=== PATIENT | female | born 1980 | race Caucasian/White ===

== ENCOUNTER 2021-10-09 20:03 | Inpatient (IN) | payer SELFPAY ==
--- NOTE | 2021-10-09 03:22 | XRR_ITS ---
PROCEDURE INFORMATION: Exam: XR Chest Exam date and time: 10/09/2021 3:22 AM Age: 40 years old Clinical indication: Other: AMS TECHNIQUE: Imaging protocol: XR of the chest. Views: 1 view. COMPARISON: No relevant prior studies available. FINDINGS: Lungs: No consolidation. Pleural spaces: No pleural effusion. No pneumothorax. Heart/Mediastinum: No cardiomegaly. Bones/joints: Unremarkable. XR/XR chest 1V portable [id number] IMPRESSION: No acute abnormality demonstrated. Radiation Dose CTDIVOL = (mGy): DLP = (mGy-cm)
[2021-10-09 20:05] VITALS: BP 177/111; PULSE 81; RESP 18; TEMP 36.7; O2SAT 100; BMI 27.3
--- NOTE | 2021-10-09 20:08 | CTR_ITS ---
PROCEDURE INFORMATION: Exam: CT Head Without Contrast Exam date and time: 10/09/2021 8:08 PM Age: 40 years old Clinical indication: Alteration of consciousness; Stupor; Patient HX: Ams/od TECHNIQUE: Imaging protocol: Computed tomography of the head without contrast. Radiation optimization: All CT scans at this facility use at least one of these dose optimization techniques: automated exposure control; mA and/or kV adjustment per patient size (includes targeted exams where dose is matched to clinical indication); or iterative reconstruction. COMPARISON: CT head wo con* [id number] 01/12/2018 10:15 AM RADIATION DOSE METRICS: Total DLP (mGy-cm): 719.67 FINDINGS: Brain: Unremarkable. No hemorrhage. No significant white matter disease. No edema. Cerebral ventricles: No ventriculomegaly. Paranasal sinuses: Visualized sinuses are unremarkable. No fluid levels. Mastoid air cells: Unremarkable as visualized. No mastoid effusion. Bones/joints: Unremarkable. No acute fracture. Soft tissues: Unremarkable. CT/CT head wo con* [id number] IMPRESSION: 1. No acute intracranial abnormality demonstrated. 2. There is no interval change from the prior examination. Radiation Dose CTDIVOL = (mGy): DLP = 719.67 (mGy-cm)
--- NOTE | 2021-10-09 20:08 | ECG_ITS ---
[facility] Test Date: 2021-10-09 Pat Name: Asad Olmstead Department: Room: Gender: Female [facility] Nurse: : 1980 Requested By: Jean Cuenca Order Number: [id number] Hannah MD: Valente Rincon M.D. Measurements Intervals [place] Rate: 79 P: -7 [place]: 151 QRS: 62 QRSD: 78 T: 35 QT: 345 QTc: 397 Interpretive Statements SINUS RHYTHM WITH SINUS ARRHYTHMIA POSSIBLE RIGHT VENTRICULAR CONDUCTION DELAY [RSR (QR) IN V1/V2] No previous ECG available for comparison Electronically Signed On 10-10-2021 16:59:12 HOSPICE ENTRANCE ATTENDANT by Valente Rincon M.D. [email or web address]
[2021-10-09 20:19] LABS: Glucose Point of Care 76 mg/dL (70-110)
[2021-10-09 20:21] VITALS: BP 160/92; PULSE 98; RESP 18; TEMP 36.7; O2SAT 100
[2021-10-09] MEDS: sodium chloride 0.9% 1,000 ML 999 ML IV ×2 (20:22→23:47)
--- NOTE | 2021-10-09 20:22 | PC.NURSE ---
spoke w. a pharmacist from poison control. they stated pt at risk for seizures, prolonged Q-T intervals, stated peak action of the med is 2-5 hrs.
[2021-10-09 20:25] LABS: Basophils # 0.1 10^3/uL (0.0-0.1); Basophils % 0.9 %; Eosinophils # 0.1 10^3/uL (0.0-0.8); Eosinophils % 1.3 %; Hematocrit 39.2 % (37.0-47.0); Hemoglobin 12.1 g/dL (11.5-15.3); Lymphocytes # 2.4 10^3/uL (0.8-4.8); Lymphocytes % 30.7 %; Mean Corpuscular HGB Conc 30.9 g/dL (30.0-36.0); Mean Corpuscular Hemoglobin 24.1 pg (28.0-34.0); Mean Corpuscular Volume 78.1 fl (81-99); Mean Platelet Volume 10.8 fL (7.4-10.4); Monocytes # 0.7 10^3/uL (0.2-0.9); Monocytes % 9.3 %; Neutrophils # 4.44 10^3/uL (1.8-7.7); Neutrophils % 57.4 %; Nucleated Red Blood Cells % 0 %; Platelet Count 313 10^3/cmm (130-400); Red Blood Count 5.02 10^6/uL (4.1-5.3); Red Cell Distribution Width 13.9 % (12.1-15.1); White Blood Count 7.7 10^3/uL (4.0-10.0)
[2021-10-09 20:35] LABS: ABG PCO2 34.7 mmHg (35-45); ABG PH Result 7.42 (7.35-7.45); Arterial Blood Gas Hematocrit 37.1 % (37-47); Base Excess ABG -1.4 mmol/L (-2.0-2.0); Blood Gas Sample Site Brachial, right; Blood Gas Sample Type Arterial; HCO3 ABG 22.6 mmol/L (22-26); Oxygen Device ROOM AIR
[2021-10-09 20:36] LABS: HCG, Serum Qual Negative (Negative)
[2021-10-09 21:04] LABS: Alanine Aminotransferase 12 U/L (0-33); Albumin Level 4.2 g/dL (3.5-5.2); Alkaline Phosphatase 45 IU/L (35-105); Anion Gap 20.7 (5-19); Aspartate Amino Transferase 12 U/L (0-32); Blood Urea Nitrogen 9 mg/dL (6-20); Calcium 8.5 mg/dL (8.5-10.5); Carbon Dioxide 18 mmol/L (22-29); Chloride 101 mmol/L (98-107); Globulin 1.9 g/dL (1.3-4.6); Glomerular Filtration Rate 79.4 mL/min (90-130); Glucose 81 mg/dL (65-115); Osmolality Calculated 280 mOsm/kg (285-295); Potassium 3.7 mmol/L (3.5-5.1); Sodium 136 mmol/L (136-145); Thyroid Stimulating Hormone 1.39 uIU/mL (0.27-4.20); Total Bilirubin 0.3 mg/dL (0.15-1.2); Total Protein 6.1 g/dL (6.6-8.7)
[2021-10-09 21:14] LABS: Acetaminophen < 5.0 ug/mL (10-30); Alcohol Level < 10 mg/dL (0-10); Salicylate < 0.3 mg/dL (3-10)
--- NOTE | 2021-10-09 21:36 | ED_ITS ---
HPI - Overdose General: Chief Complaint: Overdose Stated Complaint: overdose Time Seen by Provider: 10/09/21 20:08 History of Present Illness: HPI Narrative: 40-year-old female presents to emergency department via vehicle. carries her in. She is not r esponding. He reports that possibly sometime around 7 PM, she took half a bottle or so of her sleeping pills . This is amitriptyline. He notes that they had been arguing, and says I am the cause of this . She is nonverbal, breathing, has a pulse, and response to noxious stimuli complaint: intentional overdose Onset (ago): hour(s) Time: 19:00 Timing confirmed by: spouse Review of Systems General: Reports: ROS unobtainable due to medical condition PFS ED PFSH: Medical History (Updated 10/09/21 @ 21:37 by Jean Staton DO) Anxiety and depression Insomnia disorder Sciatica of right side Weight loss of more than 10% body weight Surgical History History of gastric stapling Hx of section Hx of cholecystectomy Social History Alcohol intake: never Marital status: Number of children: 2 Current occupational status: employed 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 Exam Const: COMMON NORMALS: well nourished EXAM LIMITATIONS: altered mental status and behavioral limitations GENERAL APPEARANCE: well kempt and ill appearing ORIENTATION/CONSCIOUSNESS: Yes Other orientation findings ( unr esponsive but actually responds when provoked.) HENMT: COMMON NORMALS: normocephalic, atraumatic, external ears normal and Normal external nose present HEAD & SCALP: normocephalic and atraumatic FACE & SINUS: normal facial exam and face symmetric NOSE: Normal external nose present and Normal nares present EXTERNAL EAR: Yes external ears normal Eye: COMMON NORMALS: Equal, round and reactive pupils present and EOMs intact bilaterally PUPIL: Yes Equal, round and reactive pupils present Chest: COMMONS NORMALS: normal inspection of the chest Resp: COMMON NORMALS: normal respiratory effort, No use of accessory muscles and clear to auscultation bilaterally AUSCULTATION: clear to auscultation bilaterally Cardio: COMMON NORMALS: regular rhythm and Peripheral pulses 2+ throughout RATE: tachycardic RHYTHM: regular rhythm PERIPHERAL PULSES: Peripheral pulses 2+ throughout GI: COMMON NORMALS: Soft to palpation INSPECTION: Yes normal to inspection PALPATION: Yes Soft to palpation and No Tenderness to palpation present (GI) Neuro: SENSORIUM/ORIENTATION: Yes somnolent (voluntarily) Psych: APPEARANCE: Yes well kempt Course Consultations: Consultation #1: subha Time: 21:36 Vital Signs: Vital signs: Vital Signs Temperature 98.1 F 10/09/21 20:05 Pulse Rate 81 10/09/21 20:05 Respiratory Rate 18 10/09/21 20:05 Blood Pressure 177/111 10/09/21 20:05 Pulse Oximetry 100 10/09/21 20:05 MDM - Overdose 2 MDM Narrative: Medical decision making narrative: Healthy 40-year-old female who intentionally overdosed on amitriptyline. Poison control was called. Obviously risks/concerns would be QTC prolongation which she does not have an EKG at least not yet, risk for seizure, arrhythmia, tachycardia and hypertension. Currently heart rate 90, blood pressure 142/95, saturations 99% on room air. She is maintaining her airway just fine. Believes she is playing possum a little bit as her is in the room. She will have to go to the ICU due to seizure risk, arrhythmia risk, etc. for the next several hours. Psychiatry consult once stable. 96-hour paperwork is in the chart, in case she tries to leave. Lab Data: Labs: Lab Results 10/09/21 10/09/21 10/09/21 20:09 20:12 20:12 WBC 7.7 10^3/uL 10^3/ uL (4.0-10.0) RBC 5.02 10^6/uL 10^6 /uL (4.1-5.3) Hgb 12.1 g/dL g/dL (11.5-15.3) Hct 39.2 % % (37.0-47.0) MCV 78.1 fl L fl (81-99) MCH 24.1 pg L pg (28.0-34.0) MCHC 30.9 g/dL g/dL (30.0-36.0) RDW 13.9 % % (12.1-15.1) Plt Count 313 10^3/cmm 10^3 /cmm (130-400) MPV 10.8 fL H fL (7.4-10.4) Neut % (Auto) 57.4 % % Lymph % (Auto) 30.7 % % [place] % (Auto) 9.3 % % Eos % (Auto) 1.3 % % Baso % (Auto) 0.9 % % Neut # (Auto) 4.44 10^3/uL 10^3 /uL (1.8-7.7) Lymph # (Auto) 2.4 10^3/uL 10^3/ uL (0.8-4.8) [place] # (Auto) 0.7 10^3/uL 10^3/ uL (0.2-0.9) Eos # (Auto) 0.1 10^3/uL 10^3/ uL (0.0-0.8) Baso # (Auto) 0.1 10^3/uL 10^3/ uL (0.0-0.1) Nucleated RBC % (a uto) 0 % % Nucleated RBCs # 0.0 /100WBC /100W BC Specimen Type Arterial Sample Site Brachial, right ABG pH 7.42 (7.35-7.45) ABG pCO2 34.7 mmHg L mmHg (35-45) ABG pO2 93.0 mmHg mmHg (80.0-100.0) ABG HCO3 22.6 mmol/L mmol/ L (22-26) ABG Base Excess -1.4 mmol/L mmol/ L (-2.0-2.0) Livan Test N/a Hematocrit 37.1 % % (37-47) O2 Delivery Device Room air Banking And Finance Instructor ID [email or web address] Sodium 136 mmol/L mmol/L (136-145) Potassium 3.7 mmol/L mmol/L (3.5-5.1) Chloride 101 mmol/L mmol/L (98-107) Carbon Dioxide 18 mmol/L L mmol/ L (22-29) Anion Gap 20.7 H (5-19) BUN 9 mg/dL mg/dL (6-20) Creatinine 0.8 mg/dL mg/dL (0.5-0.9) GFR Calculation 79.4 mL/min L mL/ min (90-130) Glucose 81 mg/dL mg/dL (65-115) POC Glucose Calculated Osmolal ity 280 mOsm/kg L mOs m/kg (285-295) Calcium 8.5 mg/dL mg/dL (8.5-10.5) Total Bilirubin 0.3 mg/dL mg/dL (0.15-1.2) AST 12 U/L U/L (0-32) ALT 12 U/L U/L (0-33) Alkaline Phosphata se 45 IU/L IU/L (35-105) Total Protein 6.1 g/dL L g/dL (6.6-8.7) Albumin 4.2 g/dL g/dL (3.5-5.2) Globulin 1.9 g/dL g/dL (1.3-4.6) TSH 1.39 uIU/mL uIU/m L (0.27-4.20) HCG, Qual Salicylates < 0.3 mg/dL L mg/ dL (3-10) Acetaminophen < 5.0 ug/mL L ug/ mL (10-30) Ethyl Alcohol < 10 mg/dL mg/dL (0-10) 10/09/21 10/09/21 20:12 20:17 WBC RBC Hgb Hct MCV MCH MCHC RDW Plt Count MPV Neut % (Auto) Lymph % (Auto) [place] % (Auto) Eos % (Auto) Baso % (Auto) Neut # (Auto) Lymph # (Auto) [place] # (Auto) Eos # (Auto) Baso # (Auto) Nucleated RBC % (a uto) Nucleated RBCs # Specimen Type Sample Site ABG pH ABG pCO2 ABG pO2 ABG HCO3 ABG Base Excess Livan Test Hematocrit O2 Delivery Device Banking And Finance Instructor ID Sodium Potassium Chloride Carbon Dioxide Anion Gap BUN Creatinine GFR Calculation Glucose POC Glucose 76 mg/dL mg/dL (70-110) Calculated Osmolal ity Calcium Total Bilirubin AST ALT Alkaline Phosphata se Total Protein Albumin Globulin TSH HCG, Qual Negative (Negative) Salicylates Acetaminophen Ethyl Alcohol Discharge Plan Discharge Patient Disposition: Admitted As Inpatient Clinical Impression: Drug overdose Qualifiers: Encounter type: initial encounter Injury intent: intentional self-harm Qualified Code(s): T50.902A - Poisoning by unspecified drugs, medicaments and biological substances, intentional self-harm, initial encounter Condition: Serious Coding Level of Care Code ED Bi Consultant for Krishna Garcia
[2021-10-09 23:45] VITALS: BP 144/102
[2021-10-09 23:50] VITALS: BP 136/78; BP 144/102; PULSE 82; PULSE 97; RESP 15; RESP 16; O2SAT 97; O2SAT 98
[2021-10-09 23:51] VITALS: BP 136/78; PULSE 97; RESP 16; O2SAT 97
[2021-10-09 23:55] VITALS: BP 144/102; PULSE 91; RESP 34; TEMP 36.4; O2SAT 97
[2021-10-10] VITALS (79 sets, daily range): BP systolic 125–144; BP diastolic 78–102; PULSE 69–99; RESP 0–28; TEMP 36.4–36.7; O2SAT 95–100
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
[2021-10-10] MEDS: sodium chloride 0.9% 1,000 ML 75 ML IV (04:12)
--- NOTE | 2021-10-10 04:54 | PC.NURSE ---
Patient resting in bed with eyes closed. Patient is alert and orientated. Patient is tearful at times, talking about leaving her for best friend. V/S wnl.
--- NOTE | 2021-10-10 05:13 | PC.NURSE ---
Patient is 96 hour hold.
[2021-10-10 09:45] LABS: Blood Urea Nitrogen 7 mg/dL (6-20); Carbon Dioxide 19 mmol/L (22-29); Chloride 108 mmol/L (98-107); Glomerular Filtration Rate 92.7 mL/min (90-130); Glucose 85 mg/dL (65-115); Magnesium 1.8 mg/dL (1.7-2.3); Osmolality Calculated 287 mOsm/kg (285-295); Sodium 140 mmol/L (136-145)
[2021-10-10 09:53] LABS: Basophils # 0.1 10^3/uL (0.0-0.1); Basophils % 0.9 %; Eosinophils # 0.1 10^3/uL (0.0-0.8); Eosinophils % 1.9 %; Hematocrit 38.2 % (37.0-47.0); Hemoglobin 11.8 g/dL (11.5-15.3); Lymphocytes # 1.7 10^3/uL (0.8-4.8); Lymphocytes % 28.8 %; Mean Corpuscular HGB Conc 30.9 g/dL (30.0-36.0); Mean Corpuscular Hemoglobin 24.3 pg (28.0-34.0); Mean Corpuscular Volume 78.8 fl (81-99); Mean Platelet Volume 11.1 fL (7.4-10.4); Monocytes # 0.5 10^3/uL (0.2-0.9); Monocytes % 8.1 %; Neutrophils # 3.51 10^3/uL (1.8-7.7); Neutrophils % 60.1 %; Nucleated Red Blood Cells % 0 %; Platelet Count 261 10^3/cmm (130-400); Red Blood Count 4.85 10^6/uL (4.1-5.3); White Blood Count 5.8 10^3/uL (4.0-10.0)
--- NOTE | 2021-10-10 10:32 | PC.CHAP ---
Pastoral Care Encounter/Spiritual Assessment Type of Contact [] Declined timber inspector visit [] Patient/Family/Request visit [] Outpatient visit [] Follow-up visit [] Physician referral [] Code/Alert [x] Routine visit [] Staff referral [] Actively dying [x] Patient sleeping [] Family support [] [] Out of room [] Palliative care [] [] Receiving care in room [] Pre-surgical visit [] Trauma [] Long length of stay [x] ICU visit [] Other: Relational/Emotional Strength [] Patient feels connected with others/family/visitors/staff [] Distress [] Loneliness/isolation [] Abandonment Spirituality of Patient [] Person of [place] [] Attends Holiness of their [place] [] Believes in Prayer [] Reads Bible or Rastafarian materials [] There are Spiritual issues to be addressed Deputy Director Interventions [x] Prayer [] Active listening [] Non-anxious presence [] Spiritual/emotional support [] Crisis/trauma care [] Spiritual counseling [] Bereavement support [] Provided bereavement packet [] Provided Bible/devotional materials [] Provided toy/stuffed animal, coloring book to patient or family member [] Provided Communion [] Anointing/[place] [] Salvation [x] Completed spiritual assessment [] Other: Impact on Illness or Injury [] Angry [] Fearful [] Anxious [] Often cries [] Exhaustion [] Unable to work [] Unable to attend evangelical [] Unable to walk/stand [] Unable to read [] Unable to drive [] Unable to eat/drink [] Unable to sleep [] Unable to be with family [] Patient intubated [] Other: Summary Time spent with patient
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
--- NOTE | 2021-10-10 12:45 | P.MISC_ITS ---
Miscellaneous Note Purpose of Documentation: Patient was seen this morning. She has been asymptomatic overnight. She states she has no other medical problems and would like to go home today. She states she only took 5 tablets of the nortriptyline. She says it was half a bottle because they were total 10 in the bottle when asked to read a later time she said she counted the pills in her hand and they were only 5. She says she goes to school and has class tomorrow and would like to get discharged today. No acute events reported by nursing staff. No events on telemetry either. She denies chest pain, shortness of breath, palpitations, feeling hot, diarrhea, constipation. Denies lightheadedness. Patient was admitted overnight. She is awaiting to see Dr. Martinez today from Neuropsych Unit for evaluation. Physical exam unremarkable After discussion with Dr. Martinez it was decided the patient will be t ransferred to Neuropsych Unit for 96-hour hold. Medicine will sign off at this point. Transfer patient to neuro psych unit under Dr. Martinez care.
--- NOTE | 2021-10-10 13:10 | PC.NURSE ---
Report Report faxed and called to NPU. IV from left AC removed. Will transport with the help of security.
--- NOTE | 2021-10-10 14:02 | PC.NURSE ---
Admission- 40-year-old female presents to emergency department via vehicle. carries her in. She is not responding. He reports that possibly sometime around 7 PM, she took half a bottle or so of her sleeping pills . This is amitriptyline. He notes that they had been arguing, and says I am the cause of this . She is nonverbal, breathing, has a pulse, and response to noxious stimuli. Upon arrival to unit- Patient is tearful and anxious. States she just wants to leave. Agitated during skin check but did calm. Reports this was a SA by OD. 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 Denies prior of current SI. Denies having a diagnosis but is currently on Wellbutrin and Amitriptyline. A&OX4.
[2021-10-10] MEDS: nicotine 2 mg Gum BUCCAL ×2 (14:15→17:35)
[2021-10-11] MEDS: buPROPion SR (12 HR) 150 mg Tablet PO (05:30)
[2021-10-11 06:00] VITALS: RESP 14
[2021-10-11 07:15] LABS: Alanine Aminotransferase 7 U/L (0-33); Albumin Level 3.5 g/dL (3.5-5.2); Alkaline Phosphatase 35 IU/L (35-105); Anion Gap 16.7 (5-19); Aspartate Amino Transferase 8 U/L (0-32); Blood Urea Nitrogen 7 mg/dL (6-20); Calcium 7.9 mg/dL (8.5-10.5); Carbon Dioxide 20 mmol/L (22-29); Chloride 108 mmol/L (98-107); Globulin 1.8 g/dL (1.3-4.6); Glomerular Filtration Rate 110.7 mL/min (90-130); Glucose 79 mg/dL (65-115); Osmolality Calculated 289 mOsm/kg (285-295); Potassium 3.7 mmol/L (3.5-5.1); Sodium 141 mmol/L (136-145); Total Bilirubin 0.2 mg/dL (0.15-1.2); Total Protein 5.3 g/dL (6.6-8.7)
[2021-10-11 14:00] VITALS: BP 101/60; PULSE 96; RESP 20; TEMP 36.6; O2SAT 97
[2021-10-11] MEDS: nicotine 2 mg Gum BUCCAL (14:19)
--- NOTE | 2021-10-11 18:43 | W.PM.NPUPNS ---
Subjective NPU Subjective: Interval history: Patient presents today reporting that she and her have had a significant reconciliation. She reports that he has decided that he is returning home and they are going to figure this out in a relationship. called the hospital multiple occasions and I did reach out to him and he did confirm that what she was saying was an accurate representation of his plans. He took significant responsibility for what happened but also did endorse that there were some issues with 82 figure out including the fact that she has had some issues of poor economic stewardship that have left them with some economic scars. We discussed the likelihood of discharge in the morning. Mental Status Exam MSE Comments: This is a well-nourished, well-developed, white female, in hospital scrubs with adequate dress, grooming, and eye contact. No abnormal movements. Cooperative with exam in no acute distress. Speech was more normal rate and volume. Mood described as ready to go home; affect brighter. Thought process, organized. Thought content: patient denied any suicidal or homicidal ideation, there were no delusions reported or noted, patient denied any auditory or visual hallucinations. Attention, concentration, and memory appear intact but were not formally tested. She is alert and oriented times three. Insight and judgment appear fair, impulse control is limited, but improving. Vitals/I&O/Wt Last Vital Signs Temp 98 F 10/11/21 14:00 Pulse 96 10/11/21 14:00 Resp 20 H 10/11/21 14:00 BP 101/60 10/11/21 14:00 Pulse Ox 97 10/11/21 14:00 Weight last 48 hrs Weight 63.503 kg Data NPU : 10/10/21 09:00 10/11/21 06:41 A&P Additional A&P Information (1) Suicidal ideation: (2) Drug overdose: (3) Weight loss of more than 10% body weight: (4) Insomnia disorder: (5) Anxiety and depression: Additional A&P Information This is a 40-year-old, white female, with recent history of mental health issues surrounding separation, who presents status post drug overdose, as a suicide attempt, who presents in the ICU for evaluation, desiring to be discharged. RECOMMENDATION AND PLAN: 1. Continue current medication. 2. Transfer to neuropsychiatric unit. 3. Encourage individual, group, and milieu therapy. 4. Continue q-15 minute checks for safety. 5. Patient improving and has been seeming to take some responsibility for his role in her despair. We will make sure that appropriate referrals are in place. Likely discharge in the morning. Involuntary Hold Information 96 Hour Hold: 96 Hour Involuntary Admission: Yes 96 Hour Hold Ending Date: 10/14/21 96 Hour Hold Ending Time: 00:01 Attestations NPU Medical Necessity Statement*: Inpatient hospitalization is medically necessary and the clinically appropriate intervention, at this time. We will monitor medications and make changes as indicated. Likely length of stay is 1-3 days. 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
[2021-10-11 21:15] VITALS: BP 142/103; PULSE 100; RESP 18; O2SAT 97
[2021-10-12] MEDS: buPROPion SR (12 HR) 150 mg Tablet PO (03:40)
[2021-10-12] MEDS: acetaminophen 325 mg Tablet 650 MG PO (03:40)
[2021-10-12 06:00] VITALS: RESP 16
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
[2021-10-12 10:38] VITALS: BP 142/103; PULSE 100; RESP 16; O2SAT 97
== END 2021-10-12 10:58 | disposition home or self-care (01) | DRG 918 ==
LOC: ER 21:45 → ICU 22:44 → NP 10-10 13:28
PROVIDERS: Internal Medicine; Admitting Provider Student in an Organized Health Care Education/Training Program; Emergency Provider Emergency Medicine; Visit Provider Psychiatry & Neurology Psychiatry
DX: T43.012A Poisoning by tricyclic antidepressants, intentional self-harm, initial encounter (principal); R45.851 Suicidal ideations; F32.A Depression, unspecified; F41.9 Anxiety disorder, unspecified; E86.0 Dehydration; G47.00 Insomnia, unspecified; F17.210 Nicotine dependence, cigarettes, uncomplicated; Z62.810 Personal history of physical and sexual abuse in childhood; Z63.0 Problems in relationship with spouse or partner; Z98.84 Bariatric surgery status
CPT/HCPCS: 36415; 36416; 36600; 70450; 71045; 80048; 80053; 80307; 82803; 82962; 83735; 84443; 84703; 85025; 93005; 96360; 96361; 97150; 97165; 99285; J7030